=== PATIENT | female | born 1955 | race Caucasian/White ===

== ENCOUNTER 2019-12-06 07:19 | Outpatient (CLI) | payer OTHER, SELFPAY ==
--- NOTE | ~2019-12-06 | MM_ITS ---
EXAMINATION: MM screening [facility] BI w gordo HISTORY: Screening mammogram TECHNIQUE: Craniocaudal and mediolateral oblique 3-D tomosynthesis images were obtained and synthetic 2-D images were generated. CAD analysis was submitted and interpreted. COMPARISON: No prior mammogram is available for comparison at this institution. BREAST PARENCHYMAL COMPOSITION: There are scattered areas of fibroglandular density. FINDINGS: There is focal asymmetry in the outer right breast posteriorly on screening CC view. Diagno stic right mammogram is recommended, with ultrasound if required. Otherwise there is no evidence of suspicious mass, calcification, or architectural distortion to sugg est malignancy in either breast. There has been no suspicious interval change. IMPRESSION: 1. Lateral right breast mammographic asymmetry 2. Diagnostic right mammogram is recommended, with ultrasound if required BI-RADS Category 0: Incomplete: Needs additional imaging evaluation. Reviewed, dictated and finalized at location A.
== END 2019-12-06 07:20 | disposition home or self-care (01) ==
LOC: ANHIMG 07:23
PROVIDERS: PCP Nurse Practitioner Family; Visit Provider Nurse Practitioner Family
DX: Z12.31 Encounter for screening mammogram for malignant neoplasm of breast (principal); R92.8 Other abnormal and inconclusive findings on diagnostic imaging of breast
CPT/HCPCS: 77063; 77067

== ENCOUNTER 2020-01-06 11:25 | Outpatient (CLI) | payer OTHER, SELFPAY ==
--- NOTE | ~2020-01-06 | MMUS_ITS ---
EXAMINATION: MM diagnostic mammo unilat RT, US breast RT limited HISTORY: Possible right breast mass on screening mammogram TECHNIQUE: Additional 3-D tomosynthesis images of the right breast were performed and synthetic 2-D i mages were generated. CAD analysis was submitted and interpreted. High resolution limited right breas t ultrasound was performed. COMPARISON: 12/06/2019, 10/08/2018, 02/28/2017 FINDINGS: MAMMOGRAPHIC FINDINGS: No persistent mass is identified with spot compression views of the outer right breast. There is no s uspicious calcification or architectural distortion. ULTRASOUND: There is no evidence of focal abnormal solid or cystic lesion in the vicinity of the mammographic fin ding in question. IMPRESSION: 1. No mammographic or sonographic evidence of malignancy. 2. Recommend routine screening mammography in one year. BI-RADS Category 1: Negative Reviewed, dictated and finalized at location A. IMPRESSION: 1. No mammographic or sonographic evidence of malignancy. 2. Recommend routine screening mammography in one year. BI-RADS Category 1: Negative
== END 2020-01-06 11:26 | disposition home or self-care (01) ==
LOC: ANHIMG 11:27
PROVIDERS: PCP Nurse Practitioner Family; Visit Provider Nurse Practitioner Family
DX: R92.8 Other abnormal and inconclusive findings on diagnostic imaging of breast (principal)
CPT/HCPCS: 76642; 77065

== ENCOUNTER 2021-01-09 11:14 | Outpatient (CLI) | payer OTHER, SELFPAY ==
--- NOTE | ~2021-01-09 | MM_ITS ---
EXAMINATION: MM screening [facility] BI w gordo HISTORY: Screening TECHNIQUE: Craniocaudal and mediolateral oblique 3-D tomosynthesis images were obtained and synthetic 2-D images were generated. CAD analysis was submitted and interpreted. COMPARISON: Comparison to multiple prior studies sequentially, with oldest reviewed study dated 02/10. BREAST PARENCHYMAL COMPOSITION: There are scattered areas of fibroglandular density. FINDINGS: There is no evidence of suspicious mass, calcification, or architectural distortion to sugg est malignancy in either breast. There has been no suspicious interval change. IMPRESSION: 1. No mammographic evidence of malignancy. 2. Recommend routine screening mammography in one year. BI-RADS Category 1: Negative Reviewed, dictated and finalized at location A.
== END 2021-01-09 11:15 | disposition home or self-care (01) ==
LOC: ANHIMG 11:16
PROVIDERS: PCP Nurse Practitioner Family; Visit Provider Nurse Practitioner Family
DX: Z12.31 Encounter for screening mammogram for malignant neoplasm of breast (principal)
CPT/HCPCS: 77063; 77067

== ENCOUNTER 2021-03-23 09:41 | Observation (INO) | payer OTHER, SELFPAY ==
[2021-03-23] VITALS (17 sets, daily range): BP systolic 106–141; BP diastolic 72–86; PULSE 80–141; RESP 16–29; TEMP 36.6–37.2; O2SAT 96–99; BMI 34.4
--- NOTE | ~2021-03-23 | XR_ITS ---
EXAMINATION: XR chest 1V portable DATE: 03/23/2021 10:21 INDICATION: Chest pressure. Tachycardia. TECHNIQUE: A single frontal view of the chest was obtained. COMPARISON: Chest single view 07/31/2019 FINDINGS: The chest demonstrates clear lungs without pneumonia, pleural effusion, or pneumothorax. Th e heart size is normal. IMPRESSION: 1. No acute cardiopulmonary disease. Reviewed, dictated and finalized at location B. DYER HELPER
[2021-03-23 10:06] LABS: Basophils Absolute Auto 0.1 K/mm3 (0.0-0.1); Basophils Percent Auto 0.6 % (0.2-1.2); Eosinophils Absolute Auto 0.2 K/mm3 (0-0.3); Eosinophils Percent Auto 1.9 % (0-4.4); Hematocrit 45.5 % (37.0-47.0); Hemoglobin 15.3 g/dL (12.0-15.0); Immature Granulocyte Absolute 0.02 K/mm3 (0.00-0.031); Immature Granulocyte Percent A 0.3 % (0-0.5); Lymphocytes Absolute Auto 2.19 K/mm3 (0.9-3.2); Lymphocytes Percent Auto 27.7 % (18.3-44.2); Mean Corpuscular HGB Conc 33.6 g/dl (32-36); Mean Corpuscular Hemoglobin 31.1 pg (26-34); Mean Corpuscular Volume 92.5 fl (80-100); Mean Platelet Volume 9.7 fl (7.4-10.4); Monocytes Absolute Auto 1.2 K/mm3 (0.1-0.6); Monocytes Percent Auto 14.8 % (2.6-8.5); Neutrophils Absolute Auto 4.3 K/mm3 (1.3-6.7); Neutrophils Percent Auto 54.7 % (45.5-73.1); Platelet Count Result 252 k/mm3 (150-375); Red Blood Count 4.92 M/mm3 (4.2-5.4); Red Cell Distribution Width 11.9 % (11.5-14.5); White Blood Count 7.9 K/mm3 (4.5-10.0)
--- NOTE | 2021-03-23 10:08 | ED.CHESTPAIN ---
HPI - Chest Pain General Chief Complaint: Arrhythmia/Palpitations Stated Complaint: Had a heart rate that was irregular Time Seen by Provider: 03/23/21 09:55 Source: patient Mode of arrival: ambulatory Limitations: no limitations History of Present Illness HPI narrative: Patient is a 66-year-old female complaining of chest pressure, midsternal, 2 out of 10, was 8 out of 10, radiating to neck accompanied by palpitations that started this morning. Patient denies any shortness of breath, abdominal pain, nausea, vomiting, diaphoresis, fever or chills. Related Data Home Medications Medication Instructions Recorded Confirmed acetaminophen [Tylenol Arthritis] 650 mg PO HS 03/23/21 atorvastatin 20 mg DAILY 03/23/21 03/23/21 calcium carbonate [Tums Ultra] 2 PO DAILY 03/23/21 cholecalciferol (vitamin D3) 125 mcg PO DAILY 03/23/21 [Vitamin D3] cyanocobalamin (vitamin B-12) 500 mcg PO DAILY 03/23/21 [Vitamin B-12] [id number]-[id number]-VX-lycopen-lutein 1 tablet PO DAILY 03/23/21 [Spectravite Adult 50 Plus] Allergies Allergy/AdvReac Type Severity Reaction Status Date / Time No Known Allergies Allergy Verified 03/23/21 09:53 Review of Systems Review of Systems: All systems reviewed & are unremarkable except as noted in HPI and below Constitutional: Constitutional: Denies body ache(s), Denies chills, Denies excessive sweating, Denies fatigue, Denies fever(s), Denies headache(s), Denies lethargy, Denies malaise, Denies weakness and Denies weight loss Eyes: Eyes: Denies blurry vision, Denies change in vision and Denies loss of vision ENT: Denies dizziness, Denies ear discharge, Denies headache(s), Denies lip swelling, Denies epistaxis, Denies nasal congestion, Denies neck pain, Denies throat swelling and Denies tongue swelling Cardiovascular: Cardiovascular: Denies diaphoresis, Denies rapid heart rate, Denies edema, Denies irregular heart rhythm, Denies lightheadedness, Denies dyspnea and Denies dyspnea on exertion Respiratory: Respiratory: Denies chest congestion, Denies cough, Denies hemoptysis, Denies dyspnea and Denies dyspnea on exertion Gastrointestinal: Gastrointestinal: Denies abdominal pain, Denies melena, Denies hematochezia, Denies diarrhea, Denies nausea, Denies vomiting and Denies hematemesis Musculoskeletal: Musculoskeletal: Denies abnormal gait, Denies deformity, Denies joint swelling, Denies limited range of motion, Denies neck pain and Denies numbness Neurologic: Denies Abnormal speech present, Denies abnormal gait, Denies confusion, Denies dizziness, Denies headache(s), Denies focal weakness, Denies loss of vision, Denies numbness, Denies Other visual disturbances, Denies Sensory deficit (Neuro) and Denies weakness Psychiatric: Psychiatric: Denies confusion, Denies depression, Denies auditory hallucinations, Denies homicidal ideation and Denies suicidal ideation Endocrine: Endocrine: Denies cold intolerance, Denies excessive sweating, Denies fatigue, Denies heat intolerance and Denies palpitations Hematologic/Lymphatic: Hematologic/Lymphatic: Denies easy bleeding and Denies easy bruising Allergic/Immunologic: Allergic/Immunologic: Denies lip swelling, Denies throat swelling and Denies tongue swelling PMFSH Comments Past medical history: Hyperlipidemia Family history: Negative for coronary disease or CT Social history: Non-smoker no EtOH or drug use Exam Const: General: cooperative, healthy appearing, comfortable, no acute distress, well developed, alert and awake; No confusion Orientation/consciousness: oriented to person, oriented to place, oriented to time, patient oriented x3 and No confusion Limitations: no limitations HENMT: Head: normal to inspection, normocephalic and atraumatic Ears: hearing grossly normal bilaterally, TM normal on the right and TM normal on the left General nose exam: Normal external nose present, Normal nares present and No nasal discharge present Face and sinus: normal facial ex
[2021-03-23] MEDS: METOPROLOL TARTRATE INJ 5 MG/5 ML VIAL IV PUSH (10:14)
[2021-03-23 10:15] LABS: INR 0.9; Prothrombin Time 12.2 Seconds (11.1-14.7)
[2021-03-23] MEDS: LACTATED RINGERS 1,000 ML 999 ML IV CONT (10:15)
[2021-03-23 10:16] LABS: Partial Thromboplastin Time 27.5 SECONDS (22.3-36.8)
[2021-03-23 10:20] LABS: Anion Gap 11 mmol/L (8-16); Blood Urea Nitrogen 10 mg/dL (7-17); Calcium 9.1 mg/dL (8.4-10.2); Carbon Dioxide 23 mmol/L (22-30); Chloride 107 mmol/L (98-107); Estimated CRCL calculation 69 ml/min; Estimated Glomerular Filt Rate > 60; Glucose 118 mg/dL (65-110); Potassium 4.3 mmol/L (3.4-5.0); Sodium 141 mmol/L (137-145)
[2021-03-23 10:32] LABS: Troponin I 0.014 ng/mL (0.000-0.034)
[2021-03-23 10:34] LABS: D Dimer 0.27 ug/mL (<0.48)
--- NOTE | 2021-03-23 15:57 | ADMGEN ---
This patient, Elvia Esquivel, was admitted to IMU Room 209-01. Patient/family oriented to hospital policies and general routines including ID bracelet, bed and alarms, visiting hours, pain management, procedures, bathroom and other care routines, personal items, smoking policy, room service/diet, and visiting hours. Information on how to activate the Rapid Response Team has been discussed. Patient/Family are encouraged to report perceived risks to care and to ask questions if they do not understand what they are told or what they should do.
--- NOTE | 2021-03-23 16:35 | ECG_ITS ---
Measurements Intervals [place] Rate: 136 P: 251 MI: 130 QRS: 18 QRSD: 85 T: 0 QT: 274 QTc: 413 Interpretive Statements SUPRAVENTRICULAR TACHYCARDIA, CONSIDER ATRIAL TACHYCARDIA LOW QRS VOLTAGE IN PRECORDIAL LEADS BORDERLINE ST ABNORMALITY- ANTEROLAT/INF LEADS ABNORMAL ECG Electronically Signed On 03-23-2021 16:50:14 CUTTING MACHINE TENDER by Rashid Padilla D.O.
--- NOTE | 2021-03-23 16:49 | PM.CNCAR ---
Assessment and Plan Assessment and plan (1) PSVT (paroxysmal supraventricular tachycardia): Code(s): I47.1 - Supraventricular tachycardia Status: Acute Assessment and Plan: Patient with intermittent tachyarrhythmia usually resolved with vagal maneuvers presented to the emergency room today as above. Probably an SVT although it is odd that there is alternating of wide complex QRS and also has slight irregularity at times, so it may be a a more complex arrhythmia. I reviewed this with an mortar worker and he wonders if it may be an atypical atrial flutter, and thought it was worth an electrophysiology study. In the short run: Repeat EKG to get a baseline Check a TSH and another troponin Start verapamil ER 120 mg daily Can either discharge today and get an outpatient echo, or stay overnight and obtain echo in the morning. Patient prefers to stay overnight. OPT stress test if trop + Prob refer to electrophysiology for study +/- ablation (2) Chest pain: Qualifiers: Chest pain type: unspecified Qualified Code(s): R07.9 - Chest pain, unspecified Code(s): R07.9 - Chest pain, unspecified Status: Acute Assessment and Plan: Probably related to prolonged tachycardia, though does have a family h/o CAD and personal h/o hyperlipidemia. (3) Hyperlipidemia: Code(s): E78.5 - Hyperlipidemia, unspecified Status: Acute (4) Family history of coronary artery disease: Code(s): Z82.49 - Family history of ischemic heart disease and other diseases of the circulatory system Status: Acute History of Present Illness History of Present Illness Consult date/time: 03/23/21 16:49 Requesting physician: Sergio Wright MD Consult reason: Other (arrhythmia) Reason For Visit: Chest Pain Narrative: Elvia Esquivel is a 66-year-old are an whom I was asked to see at the request of Dr. Wright and the hospitalist for my advice and opinion regarding her chest discomfort and arrhythmia, in consultation. Ms. Esquivel has noted palpitations a couple times a year for the past 2 years. Usually she coughs and does a vagal maneuver and they will resolve. This morning she awoke with chest pressure and palpitations. Her smart watch noted her heart rate was 145-150 bpm. Her usual vagal maneuvers did not help. She went to work but was dizzy and thought she should come to the emergency room where she was found to have an SVT with a rate of 136. She was given 1 dose of metoprolol 5 mg IV push and apparently within 5 minutes converted to NSR with a first-degree AV block. She is feeling better. She has never had any syncope except once giving blood. She has no history of thyroid disease. She has a couple servings of caffeine daily. No energy drinks or unusual supplements. She normally can work hard and walk fast with no problems with any chest pain or shortness of breath. She saw public health aide 15 or 20 years ago for chest discomfort and his stress test was negative. No hypertension or diabetes but she takes atorvastatin for hyperlipidemia and has a family h/o CAD. Review of Systems Constitutional: Constitutional: Denies fatigue and Denies weakness Eyes: Eyes: Reports no additional eye complaints ENT: Reports nasal congestion (Occasional sinus problems) Cardiovascular: Cardiovascular: Reports chest pain (Chest pressure with her palpitations today), Denies pedal edema, Denies leg edema, Reports lightheadedness and Reports palpitations Respiratory: Respiratory: Denies cough, Denies dyspnea and Denies dyspnea on exertion Gastrointestinal: Gastrointestinal: Denies abdominal pain and Reports heartburn Comments: Infrequent GERD Genitourinary: Genitourinary: Denies hematuria and Denies dysuria Musculoskeletal: Musculoskeletal: Reports arthralgias (Hands and fingers) Integumentary/Breasts: Skin/Breast: Denies rash Neurologic: Reports system reviewed and no additional complaints, except a
--- NOTE | 2021-03-23 18:00 | PM.IMHP ---
H&P: HPI History of Present Illness Date/Time: 03/23/21 18:00 Chief Complaint: Palpitations. Narrative: This is a pleasant 66-year-old female with dyslipidemia who presented to the emergency department earlier today via private vehicle for evaluation of palpitations. Upon waking this morning she noticed some mild chest pressure associated with palpitations. She has had a couple of episodes similar to this over the past year or so and coughing or a simple vagal maneuver is usually enough to resolve her symptoms within a minute or so. Unfortunately her symptoms continued for several hours today and sometime while at work she began to feel a bit lightheaded and she thought it would be best to come in for evaluation. On arrival to the emergency department it appeared that she was in SVT and she was given 1 dose of metoprolol 5 mg IV push and within 5 minute she converted to normal sinus rhythm with first-degree AV block. At the time my evaluation she is resting comfortably and she has no immediate complaints though she does admit to an increase in stress recently. She denies syncope and near-syncope. No recent cold or flu symptoms. She has not had any recent vaccinations. She denies exertional chest pain and shortness of breath. She has no history of thyroid disease or sleep apnea. She drinks a small amount of caffeine a day. Review of Systems Review of Systems: Twelve systems were reviewed and are negative except for as per HPI. PENDING SALE TO [facility] Past Medical History Medical History (Updated 03/23/21 @ 21:43 by Tanesha Bullard PA-C) Colon polyps Family history of coronary artery disease Hyperlipidemia PSVT (paroxysmal supraventricular tachycardia) March 2021 Surgical History Surgical History (Updated 03/23/21 @ 21:43 by Tanesha Bullard PA-C) History of tubal ligation Family History Family History Father , age 82 Heart disease CAD with stents Peripheral vascular disease Chronic kidney disease Mother , age 68 of lung cancer Heart disease History of [place] and CABG Lung cancer Social History Social History (Updated 03/23/21 @ 21:44 by Tanesha Bullard PA-C) Social History: , lives in [place]. 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 Smoking status: Never smoker Second hand tobacco smoke exposure: No Alcohol intake: never Substance use: never Substance use type: does not use Meds Home Medications and Allergies Home Medications Medication Instructions Recorded Confirmed Type acetaminophen [Tylenol Arthritis] 650 mg PO DAILY 03/23/21 03/23/21 History atorvastatin 20 mg HS 03/23/21 03/23/21 History calcium carbonate [Tums Ultra] 800 mg PO DAILY 03/23/21 03/23/21 History cholecalciferol (vitamin D3) 125 mcg PO DAILY 03/23/21 03/23/21 History [Vitamin D3] cyanocobalamin (vitamin B-12) 500 mcg PO DAILY 03/23/21 03/23/21 History [Vitamin B-12] [id number]-bmz-GT-lycopen-lutein 1 tablet PO DAILY 03/23/21 03/23/21 History [Spectravite Adult 50 Plus] Allergies Allergy/AdvReac Type Severity Reaction Status Date / Time No Known Allergies Allergy Verified 03/23/21 09:53 Vital Signs Vital Signs - 24 hr 03/23/21 09:45 03/23/21 09:47 03/23/21 09:49 Temperature 98.5 F Pulse Rate 141 H 138 H Respiratory Rate 24 H 20 Blood Pressure 141/86 H 141/86 H Pulse Oximetry 98 98 97 03/23/21 10:00 03/23/21 10:01 03/23/21 10:02 Temperature Pulse Rate 134 H 138 H 132 H Respiratory Rate 23 H 29 H 24 H Blood Pressure 130/78 Pulse Oximetry 97 97 97 03/23/21 10:14 03/23/21 10:58 03/23/21 11:25 Temperature Pulse Rate 136 H 96 89 Respiratory Rate 16 20 Blood Pressure 106/81 Pulse Oximetry 97 97 03/23/21 11:30 03/23/21 11:31 03/23/21 14:34 Temperature Pulse Rate 90 89 87 Respiratory Rate 19 19 Blood Pressure 108/79
--- NOTE | 2021-03-23 18:35 | ECG_ITS ---
Measurements Intervals [place] Rate: 82 P: 59 HI: 314 QRS: -23 QRSD: 74 T: 18 QT: 360 QTc: 421 Interpretive Statements SINUS RHYTHM WITH FIRST DEGREE AV BLOCK POSSIBLE LEFT ATRIAL ENLARGEMENT INCOMPLETE RIGHT BUNDLE BRANCH BLOCK LOW QRS VOLTAGE IN PRECORDIAL LEADS BORDERLINE R WAVE PROGRESSION, ANTERIOR LEADS CONSIDER INFERIOR INFARCT, AGE INDETERMINATE BASELINE ARTIFACT- V4 ABNORMAL ECG Electronically Signed On 03-23-2021 20:10:15 STOCK RANCH SUPERVISOR by Rashid Padilla D.O.
[2021-03-23] MEDS: VERAPAMIL HCL ER 120 MG TABLET PO (19:14)
[2021-03-23] MEDS: ATORVASTATIN 20 MG TABLET PO (22:56)
[2021-03-24] VITALS (8 sets, daily range): BP systolic 107–124; BP diastolic 65–73; PULSE 74–96; RESP 14–18; TEMP 35.7–36.6; O2SAT 96–100
[2021-03-24 05:37] LABS: Hematocrit 41.3 % (37.0-47.0); Hemoglobin 13.5 g/dL (12.0-15.0); Mean Corpuscular HGB Conc 32.7 g/dl (32-36); Mean Corpuscular Volume 94.7 fl (80-100); Platelet Count Result 220 k/mm3 (150-375); Red Blood Count 4.36 M/mm3 (4.2-5.4); Red Cell Distribution Width 11.9 % (11.5-14.5); White Blood Count 6.4 K/mm3 (4.5-10.0)
[2021-03-24 05:46] LABS: Alanine Aminotransferase 20 U/L (4-35); Albumin Level 3.7 g/dL (3.5-5.1); Alkaline Phosphatase 64 U/L (38-126); Anion Gap 8 mmol/L (8-16); Aspartate Amino Transferase 24 U/L (14-36); Bilirubin,Total 0.7 mg/dL (0.2-1.3); Blood Urea Nitrogen 10 mg/dL (7-17); Calcium 9.1 mg/dL (8.4-10.2); Carbon Dioxide 28 mmol/L (22-30); Chloride 104 mmol/L (98-107); Estimated CRCL calculation 63 ml/min; Estimated Glomerular Filt Rate > 60; Glucose 103 mg/dL (65-110); Magnesium 2.1 mg/dL (1.6-2.3); Sodium 140 mmol/L (137-145)
[2021-03-24] MEDS: VERAPAMIL HCL ER 120 MG TABLET PO (09:15)
[2021-03-24] MEDS: PERFLUTREN LIPID MICROSPHERES 1.5 ML VIAL DILUTED TO 10 ML TOTAL VOLUME (10:32)
--- NOTE | 2021-03-24 11:55 | PM.PNCARD ---
Progress Note: A&P Assessment and Plan (1) PSVT (paroxysmal supraventricular tachycardia): Code(s): I47.1 - Supraventricular tachycardia Status: Acute Assessment and Plan: Patient with intermittent tachyarrhythmia usually resolved with vagal maneuvers presented to the emergency room yesterday as above. Probably an SVT although it is odd that there is alternating of wide complex QRS and also has slight irregularity at times, so it may be a a more complex arrhythmia. I reviewed this with an accounting associate and he wonders if it may be an atypical atrial flutter, and thought it was worth an electrophysiology study. TSH was normal No further episodes Started verapamil ER 120 mg daily, which the patient is tolerating Okay for discharge today My office will schedule follow-up with me and S is in referring to electrophysiology for study +/- ablation (2) Chest pain: Qualifiers: Chest pain type: unspecified Qualified Code(s): R07.9 - Chest pain, unspecified Code(s): R07.9 - Chest pain, unspecified Status: Acute Assessment and Plan: Probably related to prolonged tachycardia, though does have a family h/o CAD and personal h/o hyperlipidemia. Troponin was slightly elevated and she did have slight ST depression while tachycardic. Will arrange for an outpatient stress test (3) Hyperlipidemia: Code(s): E78.5 - Hyperlipidemia, unspecified Status: Acute Assessment and Plan: Taking atorvastatin (4) Family history of coronary artery disease: Code(s): Z82.49 - Family history of ischemic heart disease and other diseases of the circulatory system Status: Acute Assessment and Plan: Continue primary prevention Subjective Date/time seen: 03/24/21 11:55 Interval history: Follow-up for tachycardia Date of service 03/24/2021: Patient has done well overnight with no further palpitations. Transient interscapular discomfort. Telemetry shows NSR. Hopes for discharge. Second troponin was slightly elevated at 0.05. Review of Systems Constitutional: Constitutional: Reports no additional constitutional complaints and Denies weakness Eyes: Eyes: Reports no additional eye complaints ENT: Denies epistaxis Cardiovascular: Cardiovascular: Denies chest pain, Denies pedal edema and Denies lightheadedness Comments: Intrascapular discomfort for 10 minutes Respiratory: Respiratory: Denies dyspnea Gastrointestinal: Gastrointestinal: Denies abdominal pain Musculoskeletal: Musculoskeletal: Reports myalgias Comments: Interscapular discomfort Integumentary/Breasts: Skin/Breast: Reports system reviewed and no additional complaints, except as docu Neurologic: Denies vertigo Comments: No dizziness Psychiatric: Psychiatric: Reports no additional psychiatric complaints Exam Const: General: no acute distress Eyes: EOM: EOMs intact bilaterally Neck: Neck: supple Resp: Effort & Inspection: normal respiratory effort Cardio: Rate: regular rate Rhythm: regular rhythm GI: Inspection: non-distended Skin: General skin exam: normal color Neuro: Cognition (Neuro): normal cognition Speech: normal speech Extrem: General: no edema Psych: Mental Status: mental status grossly normal Objective Data Vital Signs Vital Signs: Vital Signs - 24 hr 03/23/21 14:34 03/23/21 15:17 03/23/21 16:00 Temperature 98.9 F Pulse Rate 87 96 91 Respiratory Rate 20 20 Blood Pressure 112/78 115/75 Pulse Oximetry 98 98 03/23/21 18:00 03/23/21 20:00 03/23/21 22:00 Temperature 97.8 F Pulse Rate 93 88 80 Respiratory Rate 16 Blood Pressure 122/72 Pulse Oximetry 98 03/24/21 00:00 03/24/21 02:00 03/24/21 04:00 Temperature 97.5 F L 96.3 F L Pulse Rate 80 87 74 Respiratory Rate 16 14 Blood Pressure 110/65 124/73 Pulse Oximetry 99 98 03/24/21 06:00 03/24/21 08:00 03/24/21 10:00 Temperature 97.8 F Pulse Rate 89 75 82
--- NOTE | 2021-03-24 11:56 | PM.DS ---
DS: Admitting Diagnosis Discharge Date 03/29/21 Admitting Diagnosis 1) Chest pain: Qualifiers: Chest pain type: unspecified Qualified Code(s): R07.9 - Chest pain, unspecified Code(s): R07.9 - Chest pain, unspecified Status: Acute Assessment and Plan: Patient was experiencing chest pressure earlier, likely related to palpitations and tachycardia. There was a very mild bump in her troponin this evening and I believe Dr. Willoughby will want to do a stress test on the patient either tomorrow or as an outpatient upcoming. (2) PSVT (paroxysmal supraventricular tachycardia): Code(s): I47.1 - Supraventricular tachycardia Status: Acute Assessment and Plan: Patient appeared to be in SVT with a rate of 136 on arrival to the emergency department. She converted to a normal sinus rhythm after receiving 5 mg IV push of metoprolol x1. She was seen by Dr. Willoughby and it looks like the patient is being started on verapamil and will be referred to an commercial front load operator for further evaluation as an outpatient. (3) Hyperlipidemia: Code(s): E78.5 - Hyperlipidemia, unspecified Status: Acute Assessment and Plan: Continue statin and check LFTs in a.m. DS: Discharge Diagnosis Discharge Diagnosis (1) Family history of coronary artery disease: Code(s): Z82.49 - Family history of ischemic heart disease and other diseases of the circulatory system Status: Acute (2) Hyperlipidemia: Code(s): E78.5 - Hyperlipidemia, unspecified Status: Acute (3) PSVT (paroxysmal supraventricular tachycardia): Code(s): I47.1 - Supraventricular tachycardia Status: Acute (4) Chest pain: Qualifiers: Chest pain type: unspecified Qualified Code(s): R07.9 - Chest pain, unspecified Code(s): R07.9 - Chest pain, unspecified Status: Acute (5) Palpitations: Code(s): R00.2 - Palpitations Status: Acute DS: Summary Hospital Course Reason for hospitalization: tachycardia Hospital Course: Pt presented w intermittent tachyarrhythmia reviewed by cardiology and commercial front load operator suspected to be atypical atrial flutter, and thought it was worth an electrophysiology study. She was started verapamil ER 120 mg daily, which the patient is tolerating. Pt was cleared for discharge by cardiology w indications to f/u cardiology; office will schedule follow-up with Dr Willoughby and S is in referring to electrophysiology for study +/- ablation and outpt stress test Status at Discharge Functional status at discharge: independent ambulation Overall status at discharge: patient is back to baseline Time Spent with Patient Time attestation: Total time spent providing and/or coordinating discharge services: Time spent: Less than 30 minutes Exam Narrative: General: Well-developed female sitting up in bed. HEENT: EOMI. Sclerae anicteric. Oral mucosa moist. Neck: Supple. No JVD or carotid bruits. Respiratory: Lungs are clear to auscultation bilaterally. Cardiovascular: Regular rate and rhythm with S1-S2. Soft systolic murmur at upper sternal border. Gastrointestinal: Abdomen is soft, nontender, and nondistended with positive bowel sounds. Skin: Warm and dry. No rash or lesions on limited exam. Extremities: No cyanosis, clubbing, or edema. Radial and pedal pulses intact. Neurological: Alert. Cranial nerves 2-12 are grossly intact. No gross focal deficits to casual conversation. Psychiatric: Pleasant and cooperative with normal mood and affect. Judgment and insight intact. DS: Data Data Completed and Pending Labs on day of discharge: Labs from last 24 hours 03/24/21 03/24/21 03/23/21 04:52 04:52 17:07 WBC 6.4 RBC 4.36 Hgb 13.5 Hct 41.3 MCV 94.7 MCH 31.0 MCHC 32.7 RDW 11.9 Plt Count 220 MPV 10.0 Sodium 140 Potassium 4.0 Chloride 104 Carbon Dioxide 28 Anion Gap 8 BUN 10 C
--- NOTE | 2021-03-24 17:07 | ECHO_ITS ---
Patient Info Name: Elvia Esquivel Age: 66 years : 1955 Gender: Female Ht: 65 in Wt: 207 lbs BSA: 2.11 m2 HR: 89 bpm BP: 124 / 73 mmHg Heart Rhythm: Sinus Rhythm Technical Quality: Fair Exam Date: 03/24/2021 7:54 AM Exam Location: [facility] Card Pulmonary Patient Status: Inpatient Admit Date: 03/23/2021 Staff Ordering Physician: Christie Willoughby MD Engineering Specialist Technician: Destinee Francis RDCS Attending Provider: Danni Pedro M.A., MD Referring Physician: Fartun WILCOX; Exam Type: CA echo dop color flow w con Study Info Indications - arrhythmia Complete two-dimensional, color flow and Doppler transthoracic echocardiogram is performed. Summary 1. Complete two-dimensional, color flow and Doppler transthoracic echocardiogram is performed. 2. Ventricular size and thickness with good contractility of all segments. No segmental wall motion abnormalities. Visual ejection fraction is 60-65%, measured 67%. Grade 1 diastolic dysfunction is present. 3. No significant valve disease. 4. Normal estimated pulmonary pressure. 5. Normal sinus rhythm. Left Ventricle Left ventricular chamber dimension is normal. Left ventricular systolic function is normal, estimated at 60-65%. There is no increased left ventricular wall thickness. Left ventricular septal wall motion is normal. The left ventricular diastolic function is grade I diastolic dysfunction. Right Ventricle Right ventricular chamber dimension is normal. Right ventricular systolic function is normal. Left Atria Left atrial chamber dimension is normal. Right Atria Right atrial chamber dimension is normal. Aortic Valve The aortic valve is trileaflet. There is no aortic valve sclerosis. There is no aortic valve stenosis. There is no aortic valve regurgitation. Pulmonic Valve The pulmonic valve is normal. There is no pulmonic valve stenosis. There is no pulmonic regurgitation. Mitral Valve The mitral valve has normal leaflets. There is no mitral valve stenosis. There is no mitral valve regurgitation. Tricuspid Valve The tricuspid valve leaflets are normal. There is no significant tricuspid valve stenosis. There is trace tricuspid valve regurgitation. No pulmonary hypertension, estimated pulmonary arterial systolic pressure is 24 mmHg. Pericardium/Pleural The pericardium appears normal. There is no pericardial effusion. Inferior Vena Cava Normal inferior vena cava with >50% collapse upon inspiration consistent with Empty right atrial pressure, 10 mmHg. Aorta The aortic root size at the sinus of Valsalva is normal. The prox ascending aorta size is normal. Left Ventricular Outflow Tract Name Value Normal LVOT 2D LVOT Diameter 2.03 cm LVOT Doppler LVOT Peak Gradient 3 mmHg LVOT Mean Gradient 1 mmHg LVOT VTI 14.44 cm LVOT VTI/AV VTI Ratio 0.78 LVOT Stroke Volume 46.82 ml LVOT CO 3.50 l/min LVOT CI
== END 2021-03-24 12:58 | disposition home or self-care (01) ==
LOC: ANHED 13:43 → ANHIMU 14:15
PROVIDERS: Internal Medicine Cardiovascular Disease; Physician Assistant; Admitting Provider Internal Medicine; Emergency Provider Emergency Medicine; PCP Nurse Practitioner Family; Visit Provider Internal Medicine
DX: R07.9 Chest pain, unspecified (principal); I47.1 Supraventricular tachycardia; E78.5 Hyperlipidemia, unspecified; Z82.49 Family history of ischemic heart disease and other diseases of the circulatory system
CPT/HCPCS: 36415; 71045; 80048; 80053; 83735; 84443; 84484; 85025; 85027; 85380; 85610; 85730; 93005; 96361; 96374; 99285; A9270; C8929; G0378; J7120; Q9957

== ENCOUNTER 2021-05-19 09:16 | Outpatient (CLI) | payer OTHER, SELFPAY ==
--- NOTE | 2021-05-19 10:04 | EST_ITS ---
Patient Info Name: Elvia Esquivel Age: 66 years : 1955 Gender: Female Ht: 65 in Wt: 204 lbs BSA: 2.10 m2 HR: 78 bpm BP: 122 / 68 mmHg Technical Quality: Good Exam Date: 05/19/2021 10:31 AM Exam Location: [facility] Patient Status: Outpatient Admit Date: 05/19/2021 Staff Ordering Physician: Rashid Yan DO Casting Operator: Sharon Son RDCS Attending Provider: DR. YAN Referring Physician: Randy SENIOR; Exercise Technologist: Mariaa Noriega CT Exercise Physician: Rashid Yan DO Exam Type: CA stress echo Study Info Indications - CHEST PAIN Treadmill exercise stress echocardiogram is performed. Summary 1. 1. Negative Rian exercise stress test for ischemic ST changes by ECG criteria. 2. 2. Reduced functional capacity, achieving 7 METs of workload. 3. 3. Appropriate HR response to exercise. 4. 4. Appropriate HR recovery at 1 minute post exercise. 5. 5. Negative stress echocardiogram for ischemia by wall motion analysis. 6. 6. Patient informed of the above results. Stress Echo Findings Left Ventricle Appropriate increase in LV endocardial thickening with systole. Appropriate augmentation of contractility with systole. No wall motion abnormality. Left Ventricle Normal LV systolic function, no wall motion abnormality. Protocol: Rian Stress ECG Details Stage: REST Duration (min): 1 min : 0 sec Speed (mph): 0.0 Grade (%): 0 HR (bpm): 76 SBP (mmHg): 122 DBP (mmHg): 68 METS: --- Stage: REST Duration (min): 24 min : 2 sec Speed (mph): 0.0 Grade (%): 0 HR (bpm): 79 SBP (mmHg): 122 DBP (mmHg): 68 METS: --- Stage: STAGE 1 Duration (min): 1 min : 0 sec Speed (mph): 1.7 Grade (%): 10 HR (bpm): 116 SBP (mmHg): 122 DBP (mmHg): 68 METS: --- Stage: STAGE 1 Duration (min): 2 min : 0 sec Speed (mph): 1.7 Grade (%): 10 HR (bpm): 133 SBP (mmHg): 122 DBP (mmHg): 68 METS: --- Stage: STAGE 1 Duration (min): 3 min : 0 sec Speed (mph): 1.7 Grade (%): 10 HR (bpm): 135 SBP (mmHg): 140 DBP (mmHg): 72 METS: --- Stage: STAGE 2 Duration (min): 1 min : 0 sec Speed (mph): 2.5 Grade (%): 12 HR (bpm): 146 SBP (mmHg): 140 DBP (mmHg): 72 METS: --- Stage: STAGE 2 Duration (min): 2 min : 0 sec Speed (mph): 2.5 Grade (%): 12 HR (bpm): 155 SBP (mmHg): 157 DBP (mmHg): 72 METS: --- Stage: STAGE 2 Duration (min): 2 min : 12 sec Speed (mph): 0.0 Grade (%): 0 HR (bpm): 140 SBP (mmHg): 157 DBP (mmHg): 72 METS: --- Stage: RECOVERY Duration (min): 0 min : 47 sec Speed (mph): 0.0 Grade (%): 0 HR (bpm): --- SBP (mmHg): 157 DBP (mmHg): 72 METS: --- Stage: RECOVERY Duration (min): 1 min : 47 sec Speed (mph): 0.0 Grade (%): 0 HR (bpm): 110 SBP (mmHg): 157 DBP (mmHg): 72 METS: --- Stage: RECOVERY Duration (min): 2 min : 4
== END 2021-05-19 09:17 | disposition home or self-care (01) ==
LOC: ANHCARD 09:18
PROVIDERS: PCP Nurse Practitioner Family; Visit Provider Internal Medicine Cardiovascular Disease
DX: R07.89 Other chest pain (principal)
CPT/HCPCS: 93351

== ENCOUNTER 2021-08-26 12:17 | Outpatient (CLI) | payer OTHER, SELFPAY ==
[2021-08-26 12:43] LABS: Cholesterol 182 mg/dL (0-200); HDL Direct 63 mg/dL (40-60); LDL Cholesterol Calculated 100 mg/dL (<130); Triglycerides 97 mg/dL (0-150)
== END 2021-08-26 12:18 | disposition home or self-care (01) ==
LOC: CHSLAB 12:19
PROVIDERS: PCP Nurse Practitioner Family; Visit Provider Internal Medicine Cardiovascular Disease
DX: E78.5 Hyperlipidemia, unspecified (principal)
CPT/HCPCS: 36415; 80061

== ENCOUNTER 2021-12-21 12:58 | Outpatient (CLI) | payer OTHER, SELFPAY ==
[2021-12-21 13:14] LABS: Basophils Absolute Auto 0.05 K/mm3 (0.00-0.10); Basophils Percent Auto 0.8 % (0.0-1.0); Eosinophils Absolute Auto 0.12 K/mm3 (0.02-0.50); Eosinophils Percent Auto 1.9 % (1.0-6.0); Hematocrit 42.4 % (35.0-49.0); Hemoglobin 14.1 g/dL (12.0-15.0); Immature Granulocyte Absolute 0.01 K/mm3 (0.00-0.00); Immature Granulocyte Percent A 0.2 % (0.0-0.0); Lymphocytes Absolute Auto 2.16 K/mm3 (1.10-4.50); Lymphocytes Percent Auto 34.2 % (18.0-42.0); Mean Corpuscular HGB Conc 33.3 g/dL (32.0-36.0); Mean Corpuscular Hemoglobin 31.1 pg (27.0-31.0); Mean Corpuscular Volume 93.6 fL (78.0-102.0); Mean Platelet Volume 9.8 fl (9.2-11.8); Monocytes Absolute Auto 0.62 K/mm3 (0.10-0.90); Monocytes Percent Auto 9.8 % (2.0-11.0); Neutrophils Absolute Auto 3.4 K/mm3 (1.7-7.2); Neutrophils Percent Auto 53.1 % (50.0-70.0); Platelet Count Result 241 K/mm3 (150-420); Red Blood Count 4.53 M/mm3 (4.20-5.40); Red Cell Distribution Width 11.9 % (11.6-14.4); White Blood Count 6.3 K/mm3 (4.8-10.8)
[2021-12-21 14:18] LABS: Alanine Aminotransferase 29 U/L (14-59); Alkaline Phosphatase 76 U/L (46-116); Anion Gap 6 mmol/L (8-16); Aspartate Amino Transferase 18 U/L (15-37); Bilirubin,Total 0.6 mg/dL (0.00-1.00); Blood Urea Nitrogen 12 mg/dL (7-18); Calcium 9.2 mg/dL (8.5-10.1); Carbon Dioxide 31 mmol/L (21-32); Chloride 105 mmol/L (98-108); Cholesterol 212 mg/dL (0-200); Estimated Glomerular Filt Rate > 60; Free T4 Free Thyroxine 0.99 ng/dL (0.76-1.46); Glucose 87 mg/dL (70-99); HDL Direct 60 mg/dL (40-60); LDL Cholesterol Calculated 118 mg/dL (<130); Osmolality Calculated 292 mOsm/kg (285-295); Potassium 4.3 mmol/L (3.5-5.1); Sodium 142 mmol/L (136-145); Thyroid Stimulating Hormone 1.08 uIU/mL (0.36-3.74); Triglycerides 170 mg/dL (0-150); Vitamin B12 867 pg/mL (193-986)
[2021-12-23 18:23] LABS: Vitamin D 25 Hydroxy 48 ng/mL (30-100)
== END 2021-12-21 12:59 | disposition home or self-care (01) ==
LOC: CHSLAB 13:00
PROVIDERS: PCP Nurse Practitioner Family; Visit Provider Nurse Practitioner Family
DX: Z00.00 Encounter for general adult medical examination without abnormal findings (principal); E78.2 Mixed hyperlipidemia; I47.1 Supraventricular tachycardia
CPT/HCPCS: 36415; 80053; 80061; 82306; 82607; 84439; 84443; 85025

== ENCOUNTER 2022-01-10 12:04 | Outpatient (CLI) | payer OTHER, SELFPAY ==
--- NOTE | ~2022-01-10 | DEXA_ITS ---
Bone Density Report Name: PAYTON PATEL Age: 66 Sex: Female Ethnicity: White Date of : 1955 Indication: postmenopausal; screening for osteoporosis; height loss; Referring Provider: MAO, RHYS Us Study: Bone densitometry was performed. Exam Date: January 10, 2022 Accession number: [id number] Bone Density: Region BMD T-score Z-score Classification AP Spine(L1-L4) 0.943 -0.9 0.8 Normal Femoral Neck (Left) 0.615 -2.1 -0.6 Osteopenia Total Hip (Left) 0.861 -0.7 0.6 Normal Femoral Neck (Right) 0.639 -1.9 -0.4 Osteopenia Total Hip (Right) 0.896 -0.4 0.8 Normal Femoral Neck Mean 0.627 -2.0 -0.5 Osteopenia Total Hip Mean 0.879 -0.5 0.7 Normal World Health Organization criteria for BMD impression classify patients as: Normal (T-score at or above -1.0), Osteopenia (T-score between -1.0 and -2.5), or Osteoporosis (T-score at or below -2.5). 10-year Fracture Risk(1): Major Osteoporotic Fracture 9.9% Hip Fracture 1.4% Reported Risk Factors: [place] (), Neck BMD=0.615, BMI=35.2 (1) FRAX(R) Version 3.08. Fracture probability calculated for an untreated patient. Fracture probability may be lower if the patient has received treatment. Clinical Information Provided by Patient: Has used the following medications: Vitamin D, Calcium Patient maximum height was 65 Menopause Age: 55 Drinks caffeinated beverages Onset of menses at age 15 Number of children 2 Impression: The patient has low bone mass, based on the Left Femoral Neck T-score. Discussion: BONE DENSITY IS LOW AT ONE OR MORE SKELETAL SITES. This patient's lowest T-score is low at one or more skeletal sites. It meets the World Health Organization's (WHO) criteria for ?low bone mass? (T-score between -1.0 and -2.5). The patient's 10-year risk of fracture as calculated by FRAX is less than the threshold where pharmacological therapy is recommended by the National Osteoporosis Foundation (NOF). However, all treatment decisions require clinical judgment and consideration of individual patient factors, including patient preferences, comorbidities, previous drug use, risk factors not captured in the FRAX model (e.g., frailty, falls, vitamin D deficiency, increased bone turnover, interval significant decline in bone density) and possible under or overestimation of fracture risk by FRAX. The patient should follow a healthful lifestyle (good nutrition with adequate calcium and vitamin D, and appropriate weight-bearing exercise). Follow-Up: Consider repeating this study in 2 to 3 years to reassess this patient's status, or sooner if there is some new clinical indication. Reported by: Dr. iMke Mcneill on 01/10/2022 12:39:00 PM. Reviewed, dictated and f
--- NOTE | ~2022-01-10 | MM_ITS ---
EXAMINATION: MM screening [facility] BI w gordo HISTORY: Screening TECHNIQUE: Craniocaudal and mediolateral oblique 3-D tomosynthesis images were obtained and synthetic 2-D images were generated. CAD analysis was submitted and interpreted. COMPARISON: Comparison to multiple prior studies sequentially, with oldest reviewed study dated 02/10. BREAST PARENCHYMAL COMPOSITION: There are scattered areas of fibroglandular density. FINDINGS: There is a new mass in the lower outer quadrant of the left breast. The right breast is sta ble without evidence for malignancy. IMPRESSION: 1. New left breast mass, lower outer quadrant. 2. Additional mammographic views and possible breast ultrasound are recommended. BI-RADS Category 0: Incomplete: Needs additional imaging evaluation. Reviewed, dictated and finalized at location A. IMPRESSION: 1. New left breast mass, lower outer quadrant. 2. Additional mammographic views and possible breast ultrasound are recommended . BI-RADS Category 0: Incomplete: Needs additional imaging evaluation.
== END 2022-01-10 12:05 | disposition home or self-care (01) ==
LOC: CHSIMG 12:06
PROVIDERS: PCP Nurse Practitioner Family; Visit Provider Nurse Practitioner Family
DX: E78.2 Mixed hyperlipidemia (principal); L81.9 Disorder of pigmentation, unspecified; I47.1 Supraventricular tachycardia; Z78.0 Asymptomatic menopausal state; Z12.31 Encounter for screening mammogram for malignant neoplasm of breast
CPT/HCPCS: 77063; 77067; 77080

== ENCOUNTER 2022-01-25 07:52 | Outpatient (CLI) | payer OTHER, SELFPAY ==
--- NOTE | ~2022-01-25 | MMUS_ITS ---
EXAMINATION: MM diagnostic tammy LT w gordo, US breast LT limited HISTORY: Follow-up left breast mass TECHNIQUE: Additional 3-D tomosynthesis images of the left breast were performed and synthetic 2-D im ages were generated. CAD analysis was submitted and interpreted. High resolution Limited left breast ultrasound was performed. COMPARISON: 01/10/2022 and 01/09/2021 BREAST PARENCHYMAL COMPOSITION: Breast composed of scattered areas of fibroglandular density FINDINGS: MAMMOGRAPHIC FINDINGS: There is a circumscribed 5 mm mass in the mid outer outer aspect of the left breast at approximately the 3:00 position. There are no suspicious calcifications or architectural distortion. ULTRASOUND: Midleft breast ultrasound: At 3:00, 4 cm from the nipple there is a 6 mm cyst corresponding to the ma mmographic finding. No suspicious sonographic abnormalities. IMPRESSION: 1. No evidence for malignancy in the left breast. Benign finding. 2. Routine yearly screening mammogram and regular clinical breast examination are recommended. BI-RADS Category 2: Benign finding(s). Reviewed, dictated and finalized at location A. [employer] IMPRESSION: 1. No evidence for malignancy in the left breast. Benign finding. 2. Routine yearly screening mammogram and regular clinical breast examination a re recommended. BI-RADS Category 2: Benign finding(s).
== END 2022-01-25 07:53 | disposition home or self-care (01) ==
LOC: CHSIMG 07:54
PROVIDERS: PCP Nurse Practitioner Family; Visit Provider Nurse Practitioner Family
DX: R92.8 Other abnormal and inconclusive findings on diagnostic imaging of breast (principal)
CPT/HCPCS: 76642; 77061; 77065; G0279

== ENCOUNTER 2023-02-01 09:44 | Outpatient (CLI) | payer OTHER, SELFPAY ==
[2023-02-01 09:59] LABS: Basophils Absolute Auto 0.05 K/mm3 (0.00-0.10); Basophils Percent Auto 0.8 % (0.0-1.0); Eosinophils Percent Auto 1.7 % (1.0-6.0); Hematocrit 41.6 % (35.0-42.0); Hemoglobin 13.8 g/dL (11.7-13.8); Immature Granulocyte Absolute 0.01 K/mm3 (0.00-0.00); Immature Granulocyte Percent A 0.2 % (0.0-0.0); Lymphocytes Absolute Auto 2.08 K/mm3 (1.10-4.50); Lymphocytes Percent Auto 35.3 % (18.0-42.0); Mean Corpuscular HGB Conc 33.2 g/dL (32.0-36.0); Mean Corpuscular Hemoglobin 31.3 pg (27.0-31.0); Mean Corpuscular Volume 94.3 fL (78.0-102.0); Mean Platelet Volume 9.2 fl (9.2-11.8); Monocytes Absolute Auto 0.69 K/mm3 (0.10-0.90); Monocytes Percent Auto 11.7 % (2.0-11.0); Neutrophils Percent Auto 50.3 % (50.0-70.0); Platelet Count Result 285 K/mm3 (150-420); Red Blood Count 4.41 M/mm3 (4.20-5.40); Red Cell Distribution Width 11.7 % (11.6-14.4); White Blood Count 5.9 K/mm3 (4.8-10.8)
[2023-02-01 11:05] LABS: Alanine Aminotransferase 35 U/L (14-59); Albumin Level 3.5 g/dL (3.4-5.0); Alkaline Phosphatase 61 U/L (46-116); Anion Gap 5 mmol/L (8-16); Aspartate Amino Transferase 28 U/L (15-37); Bilirubin,Total 0.6 mg/dL (0.00-1.00); Blood Urea Nitrogen 13 mg/dL (7-18); Calcium 9.4 mg/dL (8.5-10.1); Carbon Dioxide 32 mmol/L (21-32); Chloride 105 mmol/L (98-108); Cholesterol 216 mg/dL (0-200); Estimated Glomerular Filt Rate 59; Free T4 Free Thyroxine 0.93 ng/dL (0.76-1.46); Glucose 93 mg/dL (70-99); HDL Direct 54 mg/dL (40-60); LDL Cholesterol Calculated 110 mg/dL (<130); Osmolality Calculated 294 mOsm/kg (285-295); Potassium 4.5 mmol/L (3.5-5.1); Sodium 142 mmol/L (136-145); Thyroid Stimulating Hormone 1.21 uIU/mL (0.36-3.74); Total Protein 6.9 g/dL (6.4-8.2); Triglycerides 258 mg/dL (0-150); Vitamin B12 631 pg/mL (193-986)
[2023-02-04 19:13] LABS: Vitamin D 1,25 (OH)2 Total 44 pg/mL (18-72); Vitamin D2 1,25 (OH)2 <8 pg/mL; Vitamin D3 1,25 (OH)2 44 pg/mL
== END 2023-02-01 09:45 | disposition home or self-care (01) ==
LOC: CHSLAB 09:46
PROVIDERS: PCP Nurse Practitioner Family; Visit Provider Nurse Practitioner Family
DX: Z00.00 Encounter for general adult medical examination without abnormal findings (principal); E78.2 Mixed hyperlipidemia; L81.9 Disorder of pigmentation, unspecified; I47.10 Supraventricular tachycardia, unspecified; N95.1 Menopausal and female climacteric states
CPT/HCPCS: 36415; 80053; 80061; 82607; 82652; 84439; 84443; 85025

== ENCOUNTER 2023-02-16 14:44 | Outpatient (CLI) | payer OTHER, SELFPAY ==
--- NOTE | ~2023-02-16 | MM_ITS ---
EXAMINATION: MM screening [facility] BI w gordo HISTORY: Screening mammogram TECHNIQUE: Craniocaudal and mediolateral oblique 3-D tomosynthesis images were obtained and synthetic 2-D images were generated. CAD analysis was submitted and interpreted. COMPARISON: 01/25/2022, 01/10/2022, 01/09/2021, 12/06/2019 BREAST PARENCHYMAL COMPOSITION:There are scattered areas of fibroglandular density. FINDINGS: No suspicious mass, calcification, or architectural distortion are identified in either reggie ast to suggest malignancy. There has been no suspicious interval change. IMPRESSION: No mammographic evidence of malignancy. Recommend routine screening mammography in one year. BI-RADS Category 1: Negative Reviewed, dictated and finalized at location . H INSPECTOR
== END 2023-02-16 14:45 | disposition home or self-care (01) ==
LOC: CHSIMG 14:46
PROVIDERS: PCP Nurse Practitioner Family; Visit Provider Nurse Practitioner Family
DX: Z12.31 Encounter for screening mammogram for malignant neoplasm of breast (principal)
CPT/HCPCS: 77063; 77067

== ENCOUNTER 2023-03-22 01:21 | Day surgery (SDC) | payer OTHER, SELFPAY ==
[2023-02-28 12:26] VITALS: BMI 34.1
--- NOTE | 2023-03-20 11:18 | SUR.PREOP ---
Patient called regarding upcoming procedure. Reviewed preop instructions, appointment times, and procedure prep.
[2023-03-22 11:21] VITALS: BP 124/76; PULSE 103; RESP 16; TEMP 36.3; O2SAT 98
[2023-03-22] MEDS: LACTATED RINGERS 1,000 ML 150 ML IV CONT (11:23)
--- NOTE | 2023-03-22 11:49 | WPDANESEPPF ---
Anes - Initial Pre Proc Eval Procedure: Operation Date: 03/22/23 12:30 Proposed Procedures p Colonoscopy - Bong Stringer MD Date/Time: 03/22/23 11:49 Surgeon: Bong Stringer MD Pre Op Diagnosis: other fecal abnormalities Patient Data Age: 68 Gender: F Height: 1.65 m Weight: 91.4 kg Last Vital Signs Temp 97.3 F L 03/22/23 11:21 Pulse 103 H 03/22/23 11:21 Resp 16 03/22/23 11:21 BP 124/76 03/22/23 11:21 Pulse Ox 98 03/22/23 11:21 O2 Del Method Room Air 03/22/23 11:21 Allergies Allergy/AdvReac Type Severity Reaction Status Date / Time No Known Allergies Allergy Verified 03/22/23 11:20 Home Medications Medication Instructions Recorded Confirmed Type acetaminophen 650 mg See Rx Instructions .Route .COMPLEX 03/23/21 03/22/23 History tablet,extended release atorvastatin 20 mg tablet 40 mg PO HS 03/23/21 03/22/23 History calcium carbonate 400 mg calcium 800 mg PO DAILY 03/23/21 03/22/23 History (1,000 mg) chewable tablet (Tums Ultra) cholecalciferol (vitamin D3) 125 125 mcg PO DAILY 03/23/21 03/22/23 History mcg (5,000 unit) tablet (Vitamin D3) ydqzoenv-uxj-ahqfc acid 0.4 1 tablet PO DAILY 03/23/21 03/22/23 History mg-lycopene 300 mcg-lutein 250 mcg tablet (Spectravite Adult 50 Plus) verapamil 120 mg 24 hr 120 mg PO DAILY@0800 30 days #90 08/11/21 03/22/23 Rx capsule,extended release caps Patient hx anesthesia problems: none Family hx anesthesia problems: none Results Review: All pre-operative results and documents have been reviewed as part of the pre-operative evaluation. [facility] Past Medical History Medical History Colon polyps Family history of coronary artery disease Hyperlipidemia PSVT (paroxysmal supraventricular tachycardia) March 2021 Surgical History Surgical History History of tubal ligation Family History Family History Father , age 82 Heart disease CAD with stents Peripheral vascular disease Chronic kidney disease Mother , age 68 of lung cancer Heart disease History of [place] and CABG Lung cancer Social History Social History Social History: , lives in [place]. 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 Smoking status: Never smoker Second hand tobacco smoke exposure: No Alcohol intake: never Substance use: never Substance use type: does not use Living arrangements: other Additional living arrangements comments: with Anes - Eval Final PreProcedure Day of Procedure 03/22/23 11:49 Patient weight: obese Heart: regular rate and rhythm Lungs: clear to auscultation Airway: Mallampati scale class II Neurological: alert and oriented Last oral intake: >/= 8 hours ASA classification: II Emergent: no Anesthetic plan: proceed Anesthesia type and monitoring: general GIVS and standard monitoring Results Review: All pre-operative results and documents have been reviewed as part of the pre-operative evaluation. Informed Consent: The patient's anesthetic plan and its attendant risks and benefits were discussed with the patient/family/POA. Questions were solicited and answers provided to the satisfaction of the patient/family/POA.
--- NOTE | 2023-03-22 13:00 | PM.HPGS ---
History of Present Illness History of Present Illness Consent: Risks, benefits, and alternatives have been discussed and questions answered. Patient agrees to proceed with procedure. Chief complaint: other fecal abnormalities Narrative: Elvia Esquivel is a 68 year old female with last colonscopy 2017 with polyp, had recent + cologuard Review of Systems Constitutional: Constitutional: Denies headache(s) and Denies weakness Eyes: Eyes: Denies blurry vision ENT: Reports Normal hearing present, Denies headache(s) and Denies neck pain Cardiovascular: Cardiovascular: Denies chest pain and Denies dyspnea Respiratory: Respiratory: Denies dyspnea Gastrointestinal: Gastrointestinal: Reports no additional gastrointestinal complaints Genitourinary: Genitourinary: Denies dysuria Musculoskeletal: Musculoskeletal: Denies neck pain Integumentary/Breasts: Skin/Breast: Denies dry skin Neurologic: Reports Normal hearing present, Denies headache(s) and Denies weakness Psychiatric: Psychiatric: Denies anxiety Endocrine: Endocrine: Denies change in body appearance Hematologic/Lymphatic: Hematologic/Lymphatic: Denies easy bleeding Allergic/Immunologic: Allergic/Immunologic: Denies urticaria PMF Past Medical History Medical History (Updated 03/22/23 @ 13:01 by Bong Stringer MD) Colon polyps Family history of coronary artery disease Hyperlipidemia Positive colorectal cancer screening using Cologuard test PSVT (paroxysmal supraventricular tachycardia) March 2021 Surgical History Surgical History History of tubal ligation Family History Family History Father , age 82 Heart disease CAD with stents Peripheral vascular disease Chronic kidney disease Mother , age 68 of lung cancer Heart disease History of AR and CABG Lung cancer Social History Social History Social History: , lives in [place]. 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 Smoking status: Never smoker Second hand tobacco smoke exposure: No Alcohol intake: never Substance use: never Substance use type: does not use Living arrangements: other Additional living arrangements comments: with Meds Home Medications and Allergies Home Medications Medication Instructions Recorded Confirmed Type acetaminophen 650 mg See Rx Instructions .Route .COMPLEX 03/23/21 03/22/23 History tablet,extended release atorvastatin 20 mg tablet 40 mg PO HS 03/23/21 03/22/23 History calcium carbonate 400 mg calcium 800 mg PO DAILY 03/23/21 03/22/23 History (1,000 mg) chewable tablet (Tums Ultra) cholecalciferol (vitamin D3) 125 125 mcg PO DAILY 03/23/21 03/22/23 History mcg (5,000 unit) tablet (Vitamin D3) kwjamrov-kyo-uyxar acid 0.4 1 tablet PO DAILY 03/23/21 03/22/23 History mg-lycopene 300 mcg-lutein 250 mcg tablet (Spectravite Adult 50 Plus) verapamil 120 mg 24 hr 120 mg PO DAILY@0800 30 days #90 08/11/21 03/22/23 Rx capsule,extended release caps Allergies Allergy/AdvReac Type Severity Reaction Status Date / Time No Known Allergies Allergy Verified 03/22/23 11:20 Vital Signs Vital Signs - 24 hr 03/22/23 11:21 Temperature 97.3 F L Pulse Rate 103 H Respiratory Rate 16 Blood Pressure 124/76 Pulse Oximetry 98 Oxygen Delivery Room Air Exam Const: General: comfortable and no acute distress HENMT: Face/Nose/Sinus: Normal nares present Eyes: General: appearance normal, both eyes and all related structures Neck: Neck: no JVD Resp: Auscultation: clear to auscultation bilaterally Cardio: Rate: regular rate Rhythm: regular rhythm GI: Inspection: non-distended GI Palp: Yes Soft to palpation Skin: General skin
[2023-03-22 13:21] VITALS: BP 105/73; PULSE 101; RESP 20; O2SAT 98
[2023-03-22 13:31] VITALS: BP 119/76; PULSE 82; RESP 19; O2SAT 99
[2023-03-22 13:41] VITALS: BP 123/75; PULSE 88; RESP 20; O2SAT 99
== END 2023-03-22 13:52 | disposition home or self-care (01) ==
PROVIDERS: PCP Nurse Practitioner Family; Visit Provider Internal Medicine Gastroenterology
PROC: 0DJD8ZZ Inspection of Lower Intestinal Tract, Via Natural or Artificial Opening Endoscopic (ICD-10-PCS; CPT 45378; principal; 2023-03-22 12:30)
DX: R19.5 Other fecal abnormalities (principal); D12.3 Benign neoplasm of transverse colon; D12.4 Benign neoplasm of descending colon; K57.30 Diverticulosis of large intestine without perforation or abscess without bleeding; K64.8 Other hemorrhoids; E78.5 Hyperlipidemia, unspecified; E66.9 Obesity, unspecified; Z68.33 Body mass index [BMI] 33.0-33.9, adult
CPT/HCPCS: 45385; 88305; J2704; J7120

== ENCOUNTER 2024-03-07 13:07 | Outpatient (CLI) | payer MEDICARE, OTHER, SELFPAY ==
--- NOTE | ~2024-03-07 | MM_ITS ---
EXAMINATION: MM screening [facility] BI w gordo HISTORY: Screening TECHNIQUE: Craniocaudal and mediolateral oblique 3-D tomosynthesis images were obtained and synthetic 2-D images were generated. CAD analysis was submitted and interpreted. COMPARISON: 02/16/2023 and dating back to 12/06/2019 BREAST PARENCHYMAL COMPOSITION: The breasts are heterogeneously dense, which may obscure small masses . FINDINGS: 2 mm Linear calcification within the retroareolar position of the left breast, stable and b enign in appearance. Stable parenchymal pattern without suspicious microcalcifications, architectural distortion, discrete masses or significant asymmetry. IMPRESSION: 1. No mammographic evidence of malignancy. 2. Recommend routine screening mammography in one year. BI-RADS Category 2: Benign finding(s). Reviewed, dictated and finalized at location A. DEVELOPMENT TEAM LEAD
== END 2024-03-07 13:08 | disposition home or self-care (01) ==
PROVIDERS: PCP Nurse Practitioner Family; Visit Provider Nurse Practitioner Family
DX: Z12.31 Encounter for screening mammogram for malignant neoplasm of breast (principal)
CPT/HCPCS: 77063; 77067